=== PATIENT | male | born 2000 | race Caucasian/White ===

== ENCOUNTER 2018-12-28 06:43 | Emergency (ER) | payer BC ==
[~2018-12-28] VITALS: Ht 185.4 cm; Wt 63.5 kg
[~2018-12-28 06:43] MED LIST: IBUPROFEN 600600 M1 PO
[2018-12-28] MEDS ORDERED: AUGMENTIN 875-1 EACH PO (07:22)
[2018-12-28] MEDS ORDERED: HYDROCODONE-AP1 EAC6 PO (07:31)
[2018-12-28 07:33] VITALS: BP 150/105
== END 2018-12-28 07:35 | disposition home or self-care (01) ==
LOC: M.ERS 06:43
DX: H66.91 Otitis media, unspecified, right ear (principal); H72.91 Unspecified perforation of tympanic membrane, right ear